=== PATIENT | female | born 1965 | race Hispanic/Latino ===

== ENCOUNTER → 2019-07-11 | Day surgery (SDC) | payer OTHER ==
[2019-07-06 12:02] LABS: BASOPHILS # (AUTO) 0.1 (0.0-0.1); BASOPHILS % 1.1 % (0.0-1.0); EOSINOPHILS # (AUTO) 0.1 (0.0-0.4); EOSINOPHILS % 1.8 % (0.0-6.0); HEMATOCRIT 41.7 % (34.2-44.1); HEMOGLOBIN 13.9 g/dL (12.0-16.0); LYMPHOCYTES # (AUTO) 1.8 (1.0-3.2); LYMPHOCYTES % 40.4 % (18.0-39.1); MEAN CORPUSCULAR HEMOGLOBIN 29.6 pg (28-32); MEAN CORPUSCULAR HGB CONC 33.3 g/dL (31-35); MEAN CORPUSCULAR VOLUME 88.9 fL (81-99); MONOCYTES # (AUTO) 0.3 (0.2-0.8); MONOCYTES % 6.6 % (4.4-11.3); NEUTROPHILS # (AUTO) 2.3 (2.1-6.9); NEUTROPHILS % 49.9 % (38.7-80.0); PLATELET COUNT 331 x10e3/uL (140-360); RED BLOOD COUNT 4.69 x10e6/uL (3.6-5.1); RED CELL DISTRIBUTION WIDTH 12.9 % (11.7-14.4)
[2019-07-06 12:17] LABS: INR 0.89; PROTHROMBIN TIME 12.6 seconds (11.9-14.5)
[2019-07-06 12:25] LABS: ALANINE AMINOTRANSFERASE 50 IU/L (0-55); ALBUMIN 4.1 g/dL (3.5-5.0); ALBUMIN/GLOBULIN RATIO 1.2 (0.8-2.0); ALKALINE PHOSPHATASE 102 IU/L (40-150); ANION GAP 11.6 mmol/L (8-16); BLOOD UREA NITROGEN 18 mg/dL (7-26); BUN/CREATININE RATIO 25 (6-25); CALCIUM 9.1 mg/dL (8.4-10.2); CARBON DIOXIDE 26 mmol/L (22-29); CHLORIDE 108 mmol/L (98-107); CREATININE, SERUM 0.73 mg/dL (0.57-1.11); EST GLOMERULAR FILTRATION RATE > 60 ML/MIN (60-); GLUCOSE 96 mg/dL (74-118); POTASSIUM 4.6 mmol/L (3.5-5.1); SODIUM 141 mmol/L (136-145)
[~2019-07-11] VITALS: Ht 157.5 cm; Wt 60.8 kg
[~2019-07-11] MED LIST: CHLORDIAZEPOX-1 EACH PO; FENTANYL CITRATE/PF 100MCG/2 ML INJ ONE; GABAPENTIN300 MG PO; HEPARIN SOD/SOD CHLORIDE 2,000 ML ONE; IOPAMIDOL 370 MG/ML 200 ML INFUS..BTL INJ ONE; IRBESARTAN-HCT1 EACH PO; LIDOCAINE HCL 2% LOCAL 20 ML VIAL ONE; MEDROL4 MG PO; MELOXICAM7.5 MG PO; MIDAZOLAM HCL 2 MG/2 ML VIAL ONE; PROPRANOLOL HCL40 MG PO; SERTRALINE HCL50 MG PO; SODIUM CHLORIDE 0.9% 1000ML 1,000 ML ONE; ZOFRAN8 MG PO; [UNRECOGNIZED DRUG - OTHER] PO
--- OUTSIDE RECORDS SUMMARY | 2019-07-11 14:37 | XMS REPORT | Summary of Care ---
Author Organization Unknown Address Unknown Phone Unavailable Encounter HQ Encntr_alias(FIN) [id number] Date(s): 07/18/14 - 07/18/14 [facility] [address] [place] [address]- Discharge Disposition: Home Physician Attending: Chalino Sifuentes MD Physician_Referring: Chalino Sifuentes MD Vital Signs No data available for this section Problem List No data available for this section Allergies, Adverse Reactions, Alerts No data available for this section Medications No data available for this section Results No data available for this section Immunizations No data available for this section Procedures No data available for this section Social History No data available for this section Assessment and Plan No data available for this section
--- OUTSIDE RECORDS SUMMARY | 2019-07-11 14:37 | XMS REPORT | Summary of Care ---
Author RICHIE [facility] [place] Unknown Address Unknown Phone Unavailable Care Team Providers Care Winding Rack Operator Name Role Phone EUFEMIA Wilkinson, MARU Unavailable Unavailab tammy BEARDEN MD, JACQUE MYRICK Unavailable Unavailkd CUEVAS MD, CAROLINE Unavailable Unavailable Keyanna Cuevas DO Unavailable Unavailable NICKI Wilkinson, JACQUE Unavailable Unavailable KATELYNN ERNANDEZ, BRIE BERNSTEIN Unavailable Unavailable JOSE ALEJANDRO ERNANDEZ, MARU NAVARRO Unavailable Unavailable Unavailable Unavailable Functional Status Name Dates Details Functional status health issues are not documented Status: Name Dates Details Cognitive status health issues are not d ocumented Status: Problems Name Dates Details Vertigo, peripheral (386.10, H81.399) Status: Active Chronic tension-type headache, not intra ctable (339.12, G44.229) Status: Active Cervical spondylosis (721.0, M47.812) Status: Active Cervical radiculopathy (723.4, M54.12) Status: Active Right shoulder pain (719.41, M25.511) Status: Active Full thickness rotator cuff tear (727.61 , M75.120) Status: Active Medications Name Dates Details Gabapentin 300 MG Oral Capsule TAKE 1 CAPSULE AT BEDTIME. Quantity: 30 M.A. * Start : 09-May-2018 Active Meloxicam 15 MG Oral Tablet TAKE 1 TABLET DAILY NEEDED. * Refills: 0 M.A. * Start : 09-May-2018 Active Sertraline HCl - 50 MG Oral Tablet TAKE 1 TABLET BY MOUTH EVERY DAY * Refills: 1 M.A. * Start : 09-May-2018 Active SUMAtriptan Succinate 50 MG Oral Tablet TAKE 1 TABLET FOR MIGRAINE RELIEF. MAY REPEAT EVERY 2 HOURS. MAX 200MG/DAY. * Quantity: 10 Refills: 2 MARU FALL M.D. * Start : 09-May-2018 Active Topiramate 50 MG Oral Tablet TAKE 1 TABLET TWICE DAILY. * Quantity: 60 Refills: 2 EUFEMIA Wilkinson, MARU * Start : 09-May-2018 Active Allergies and Adverse Reactions Name Dates Details No Known Allergies (Allergy) Status: Act franko Past Medical History Name Dates Details Chronic tension-type headache, not intra ctable (339.12, G44.229) Status: Active History of depression (V11.8, Z86.59) Status: Resolved History of fibromyalgia (V13.59, Z87.39) Status: Resolved Procedures Procedure Dates Details MRI Spine cervical wo contrast [id number] Date: 15-May-2019 MR Shoulder wo contrast 32848 Date: 15-May-2019 History of Anastomosis Of Gallbladder Co mpleted Immunization Name Dates Details Immunizations not documented Family History Name Dates Details Family history of arthritis (V17.7, Z82. 61) Comments: Other Status: Active Name Dates Details Family history of essential hypertension (V17.49, Z82.49) Status: Active Social History Name Dates Details - Status: Name Dates Details Never smoked tobacco (finding) Vital Signs Date Test Result Details [id number] Systolic blood pressure 108 mm[Hg] Status: Comments : Location: LUE; Position: Sitting Diastolic blood pressure 75 mm[Hg] Status: Comment s: Location: LUE; Position: Sitting Body height 62 in Status: Weight 133 lb Status: Body mass index (BMI) [Ratio] 24.33 kg/m2 Status: Body surface area Derived from formula 1.61 m2 S tatus: Heart Rate 79 /min Status: Body temperature 98 f Status: Results Date Description Value Details Results not documented Plan of Care Name Dates Details Planned Observations Planned Goals not documented Planned Encounters Orthopedics Referral Appointment; CAROLINE CUEVAS M.D. On: 21-Jun-2019 10:00 Instructions Name Dates Details Instructions not documented Encounters Appointment; MARU FALL M .D. Encounter Diagnosis: Problem not documented On: 09-May-2018 8:00 Appointment; MARU FALL M .D. Encounter Diagnosis: Problem not documented On: 09-Aug-2018 15:00 Appointment; CAROLINE CUEVAS M.D. Encounter Diagnosis: Problem not documented On: 15-May-2019 14:00 Appointment; CAROLINE CUEVAS M.D. Encounter Diagnosis: Problem not documented On: 15-May-2019 15:00
--- OUTSIDE RECORDS SUMMARY | 2019-07-11 14:37 | XMS REPORT | Summary of Care ---
Author Author MASON Wilkinson, RICHIE VELAZQUEZ Organization Unknown Address Unknown Phone Unavailable Care Team Providers Care Program Director Scouting Name Role Phone EUFEMIA Wilkinson, MARU Unavailable Unavailab tammy BEARDEN MD, JACQUE MYRICK Unavailable UnavailCAROLINE Triana MD Unavailable Unavailable Keyanna Cuevas DO Unavailable Unavailable NICKI Wilkinson, JACQUE Unavailable Unavailable KATELYNN ERNANDEZ, BRIE BERNSTEIN Unavailable Unavailable MARU BLOUNT MD Unavailable Unavailable Unavailable Unavailable Functional Status Name [...] MAX 200MG/DAY. * Quantity: 10 Refills: 2 EUFEMIA Wilkinson, MARU * Start : 09-May-2018 Active Topiramate 50 [...] Dates Details MRI Spine cervical wo contrast [id number] Date: 15-May-2019 MR Shoulder wo contrast 58053 Date: 15-May-2019 History of Anastomosis Of Gallbladder [...] (finding) Vital Signs Date Test Result Details [id number] Systolic blood pressure 108 mm[Hg] Status: Comments [...]
--- OUTSIDE RECORDS SUMMARY | 2019-07-11 14:37 | XMS REPORT | Summary of Care ---
Author Author Thanh Whitt, RICHIE ENGLISH Organization Unknown Address Unknown Phone Unavailable Care Team Providers Care Crew Dispatcher Name Role Phone EUFEMIA Wilkinson, MARU Unavailable Unavailab tammy BEARDEN MD, JACQUE MYRICK Unavailable Unavaila JACQUE Prasad M.D. Unavailable Unavailable KATELYNN ERNANDEZ, BRIE BERNSTEIN Unavailable Unavailable JOSE ALEJANDRO ERNANDEZ, MARU NAVARRO Unavailable Unavailable Unavailable Unavailable Functional Status Name Dates Details Functional status health issues are not documented Status: Name Dates Details Cognitive status health issues are not d ocumented Status: Problems Name Dates Details Chronic tension-type headache, not intra ctable (339.12, G44.229) Status: Active Vertigo, peripheral (386.10, H81.399) Status: Active Medications Name Dates Details Gabapentin 300 MG Oral Capsule TAKE 1 CAPSULE AT BEDTIME. Quantity: 30 * Start : 09-May-2018 Active Meloxicam 15 MG Oral Tablet TAKE 1 TABLET DAILY NEEDED. * Refills: 0 * Start : 09-May-2018 Active Sertraline HCl - 50 MG Oral Tablet TAKE 1 TABLET BY MOUTH EVERY DAY * Refills: 1 * Start : 09-May-2018 Active Ciprofloxacin HCl - 250 MG Oral Tablet TAKE 1 TABLET EVERY 12 HOURS DAILY. * Refills: 0 * Start : 09-May-2018 Active SUMAtriptan Succinate 50 MG Oral Tablet TAKE 1 TABLET FOR MIGRAINE RELIEF. MAY REPEAT EVERY 2 HOURS. MAX 200MG/DAY. * Quantity: 10 Refills: 2 MARU FALL M.D. * Start : 09-May-2018 Active Topiramate 50 MG Oral Tablet TAKE 1 TABLET TWICE DAILY. * Quantity: 60 Refills: 2 MARU FALL M.D. * Start : 09-May-2018 Active Allergies and Adverse Reactions Name Dates Details No Known Allergies (Allergy) Status: Act franko Past Medical History Name Dates Details Chronic tension-type headache, not intra ctable (339.12, G44.229) Status: Active History of depression (V11.8, Z86.59) Status: Resolved History of fibromyalgia (V13.59, Z87.39) Status: Resolved Procedures Procedure Dates Details MRI Brain wo contrast [id number] Date: 09-May-2018 History of Anastomosis Of Gallbladder Co mpleted Immunization Name Dates Details Immunizations not documented Family History Name Dates Details Family history of arthritis (V17.7, Z82. 61) Comments: Other Status: Active Name Dates Details Family history of essential hypertension (V17.49, Z82.49) Status: Active Social History Name Dates Details - Status: Name Dates Details Never smoker Vital Signs Date Test Result Details [id number] BP Systolic 131 mm[Hg] Status: Comments: Lo cation: LUE; Position: Sitting BP Diastolic 87 mm[Hg] Status: Comments: Lo cation: LUE; Position: Sitting Height 62 in Status: Weight 138 lb Status: Body Mass Index Calculated 25.24 kg/m2 Status: Body Surface Area Calculated 1.63 m2 Status: Heart Rate 87 /min Status: Comments: Lo cation: L Brachial Artery; Results Date Description Value Details Results not documented Plan of Care Name Dates Details Planned Observations Planned Goals not documented Planned Encounters Appointment; MARU FALL M .D. On: 09-Aug-2018 15:00 Interventions Provided Medication Changes* SUMAtriptan Succinate 50 MG Oral Tablet - Renew * Topiramate 50 MG Oral Tablet - Start Labs/Procedures/Imaging* MRI Brain wo contrast [id number]; To Be Done: 09 May 2018 Plan* - continue meclizine, f/u with ENT * - vestibular rehab * - RTC in 3 mons Instructions Name Dates Details Instructions not documented Encounters Appointment; MARU FALL M .D. Encounter Diagnosis: Problem not documented On: 09-May-2018 8:00
--- OUTSIDE RECORDS SUMMARY | 2019-07-11 14:37 | XMS REPORT | Continuity of Care Document ---
Author Author RICHIE [facility] Address Unknown Phone Unavailable Care Team Providers Care Sausage Grinder Name Role Phone [facility] Information [employer] Unavailable Un available Problems Problem Status Onset Date Classification Date Reported Comments Source 386.10 VERTIGO Active 07/16/2014 [facility] Medications No Data Provided for This Section Allergies, Adverse Reactions, Alerts No Known Medication Allergies Immunizations No Data Provided for This Section Results No Data Provided for This Section Pathology Reports No Data Provided for This Section Diagnostic Reports Report Value Date Source Brain wo contrast CT CRANIAL CT (without contrast) 07/18/2014 HISTORY: Chronic headaches. TECHNIQUE: Helical CT images were obtained from the foramen magnum to the vertex without the use of intravenous contrast. There are no prior studies available for comparison. It is noted the patient also had a high-resolution CT scan of the temporal bones (internal auditory canals). Please refer to separate report. FINDINGS: There is normal appearance of the ventricular system and extraventricular CSF spaces. There is no evidence of mass, midline shift, hemorrhage, extra-axial fluid collection, acute infarction, or other focal abnormal attenuation within the brain parenchyma. The calvarium is intact. The visualized sinuses and mastoids are clear. CONCLUSION: 1. Negative noncontrast cranial CT. 2. Please refer to the accompanying CT r eport of the temporal bones (internal auditory canals). Coding: Brain wo contrast CT CPT Code: 17530 SL: 12 Artur Tiwari M.D. 07/18/2014 [facility] Internal Auditory Canal wo contrast CT CT INTERNAL AUDITORY CANAL WITHOUT CONTRAST INDICATION: Peripheral vertigo COMPARISON: None FINDINGS: RIGHT TEMPORAL BONE: External auditory canal: The EAC is patent. The tympanic membrane is unremarkable. Middle ear cavity: The middle ear cavity, including the hypotympanum and epitympanum, are clear. Mastoid air cells: Clear. Ossicles: Well visualized and intact. Inner ear: The cochlea, vestibule, and semicircular canals are unremarkable. Vestibular aqueduct: Normal in caliber. Facial nerve canal: The course of the facial nerve is unremarkable. Vascular structures: The locations of the petrous ICA and jugular bulb are within normal limits. LEFT TEMPORAL BONE: External auditory canal: The EAC is patent. The tympanic membrane is unremarkable. Middle ear cavity: The middle ear cavity, including the hypotympanum and epitympanum, are clear. Mastoid air cells: Clear. Ossicles: Well visualized and intact. Inner ear: The cochlea, vestibule, and semicircular canals are unremarkable. Vestibular aqueduct: Normal in caliber. Facial nerve canal: The course of the facial nerve is unremarkable. Vascular structures: The locations of the petrous ICA and jugular bulb are within normal limits. IMPRESSION: Unremarkable CT appearance of the temporal bones. SL: 16 07/18/2014 [facility] Consultation Notes No Data Provided for This Section Discharge Summaries No Data Provided for This Section History and Physicals No Data Provided for This Section Vital Signs No Data Provided for This Section Encounters Location Location Details Encounter Type Encounter Number Reason For Visit Attending Provider ADM Date DC Date Status Source [facility] [id number] Chalino Bear 07/18/2014 07/19/2014 [facility] Procedures No Data Provided for This Section Assessment and Plan No Data Provided for This Section Plan of Care No Data Provided for This Section Social History Social History Date Source No data available for this section 07/19/2014 [facility] Family History No Data Provided for This Section Advance Directives No Data Provided for This Section Functional Status No Data Provided for This Section
--- OUTSIDE RECORDS SUMMARY | 2019-07-11 14:37 | XMS REPORT ---
Author Author [facility] Organization [facility] Address Unknown Phone Unavailable Care Team Providers Care Medical Lab Technologist Name Role Phone NIKKI ROBERTS M.D. Unavailable Unavailable CAROLINE CUEVAS M.D. Unavailable Unavailable MARU FALL M.D. Unavailable Unavailab le Problems Condition Name Condition Details Condition Category Status Onset Date Resolution Date Last Treatment Date Treating Clinician Comments History of depression History of depression Problem Resolved History of fibromyalgia History of fibromyalgia Problem Resolved Chronic tension-type headache, not intractable Chronic tension-type headache, not intractable Problem Active Vertigo, peripheral Vertigo, peripheral Problem Active Cervical spondylosis Cervical spondylosis Problem Active Cervical radiculopathy Cervical radiculopathy Problem Active Right shoulder pain Right shoulder pain Problem Active Full thickness rotator cuff tear Full thickness rotator cuff tea r Problem Active SLAP shoulder tear SLAP shoulder tear Problem Active Adhesive capsulitis of right shoulder Adhesive capsulitis of right shoulder Problem Active Shoulder impingement, right Shoulder impingement, right Problem Active Traumatic incomplete tear of right rotator cuff, initi al encounter Traumatic incomplete tear of right rotator cuff, initial encounter Problem Active Allergies, Adverse Reactions, Alerts This patient has no known allergies or adverse reactions. Medications Ordered Medication Name Filled Medication Name Start Date Stop Da te Current Medication? Ordering Clinician Indication Dosage Frequency Signature (SIG) Comments Components Meloxicam 7.5 MG Oral Tablet Meloxicam 7.5 MG Oral Tablet 2019-06-02 0 00:00:00 Yes NIKKI ROBERTS M.D. QD TAKE 1 TABLET DAILY W ITH FOOD. methylPREDNISolone 4 MG Oral Tablet methylPREDNISolone 4 MG Oral Tablet 2019-06-29 00:00:00 Yes NIKKI ROBERTS M.D. O NE TABLE TWICE DAILY Gabapentin 300 MG Oral Capsule Gabapentin 300 MG Oral Capsul e 2018-05-09 00:00:00 Yes CAROLINE CUEVAS M.D. Q0.3333D TAKE 3 CAPSULE S 3 TIMES DAILY. Meloxicam 15 MG Oral Tablet Meloxicam 15 MG Oral Tablet 2018-05-09 00:00:00 Yes CAROLINE CUEVAS M.D. TAKE 1 TABLET DAILY N EEDED. Sertraline HCl - 50 MG Oral Tablet Sertraline HCl - 50 MG Or al Tablet 2018-05-09 00:00:00 Yes TAKE 1 TABLET BY MOUTH EVERY DAY SUMAtriptan Succinate 50 MG Oral Tablet SUMAtriptan Succinat e 50 MG Oral Tablet 2018-05-09 00:00:00 Yes MARU FALL M.D. TAKE 1 TABLET FOR MIGRAINE RELIEF. MAY REPEAT EVERY 2 HOURS. MAX 200MG/DAY. Topiramate 50 MG Oral Tablet Topiramate 50 MG Oral Tablet 2018-04-29 00:00:00 Yes MARU FALL M.D. Q0.5D TAKE 1 TABL ET TWICE DAILY. Vital Signs Vital Name Observation Time Observation Value Comments Systolic blood pressure 2019-06-21 10:23:00 123 mm[Hg] Loca tion: LUE; Position: Sitting Diastolic blood pressure 2019-06-21 10:23:00 79 mm[Hg] Loc ation: LUE; Position: Sitting Body height 2019-06-21 10:23:00 62 [in_us] Weight 2019-06-21 10:23:00 134 [lb_av] Heart Rate 2019-06-21 10:23:00 60 /min Systolic blood pressure 2019-05-15 14:30:00 108 mm[Hg] Loca tion: LUE; Position: Sitting Diastolic blood pressure 2019-05-15 14:30:00 75 mm[Hg] Loc ation: LUE; Position: Sitting Body height 2019-05-15 14:30:00 62 [in_us] Weight 2019-05-15 14:30:00 133 [lb_av] Heart Rate 2019-05-15 14:30:00 79 /min Body temperature 2019-05-15 14:30:00 98 [degF] BP Systolic 2018-05-09 09:02:00 131 mm[Hg] Location: [facility]; Position: Sitting BP Diastolic 2018-05-09 09:02:00 87 mm[Hg] Location: [place]; Position: Sitting Height 2018-05-09 09:02:00 62 [in_us] Weight 2018-05-09 09:02:00 138 [lb_av] Heart Rate 2018-05-09 09:02:00 87 /min Location: L Brachial Artery; Procedures and Interventions Procedure Date / Time Performed Performing Clinici an [U] XRAY SHOULDER MIN 2 VWS RIGHT [id number] 2019-06-28 00:00:00 MRI Spine cervical wo contrast [id number] 2019-05-15 00:00:00 MR Shoulder wo contrast [id number] 2019-05-15 00:00:00 MRI Brain wo contrast [id number] 2018-05-09 00:00:00 History of Anastomosis Of Gallbladder Encounters Start Date/Time End Date/Time Encounter Type Admission Type Attendi [facility] Care Department Encounter ID 2019-06-29 12:30:00 2019-06-29 12:30:00 Appointment; NIKKI ROBERTS M.D. CRUMBIE, DAVID, M.D. [facility] Orthopedics [facility] [id number] 2019-06-21 10:00:00 2019-06-21 10:00:00 Appointment; CAROLINE CUEVAS M .D. JAVED, SABA, M.D. [facility] [id number] 2019-05-15 15:00:00 2019-05-15 15:00:00 Appointment; CAROLINE CUEVAS M .D. JAVED, SABA, M.D. [facility] [id number] 2019-05-15 14:00:00 2019-05-15 14:00:00 Appointment; CAROLINE CUEVAS M .D. JAVED, SABA, M.D. [facility] [id number] 2018-08-09 15:00:00 2018-08-09 15:00:00 Appointment; MARU COLE M.D. ROSERO-ENRIQUEZ, ADRIANA, M.D. [facility] [id number] 2018-05-09 08:00:00 2018-05-09 08:00:00 Appointment; MARU COLE M.D. ROSERO-ENRIQUEZ, ADRIANA, M.D. [facility] Neurology [id number] Results Test Description Test Time Test Comments Text Results Atomic Results Result Comments [U] XRAY SHOULDER MIN 2 VWS RIGHT [id number] 2019-06-29 12:49:00 Images acquired, not reported on this accession number.
--- OUTSIDE RECORDS SUMMARY | 2019-07-11 14:37 | XMS REPORT | Summary of Care ---
Author RICHIE Montelongo M.A. Organization Unknown Address Unknown Phone Unavailable Care Team Providers Care Holistic Health Practitioner Name Role Phone EUFEMIA Wilkinson, MARU Unavailable Unavailab Nirmala Zayas M.A. Unavailable Unavailable NICKI BEARDEN MD, JACQUE MYRICK Unavailable Unavaila rosa CUEVAS MD, CAROLINE Unavailable Unavailable Basilio HAIR, Keyanna Unavailable Unavailable NICKI Wilkinson, JACQUE Unavailable Unavailable [...] Refills: 1 * Start : 09-May-2018 Active SUMAtriptan Succinate [...] Dates Details MRI Spine cervical wo contrast [id number] Date: 15-May-2019 MR Shoulder wo contrast [id number] Date: 15-May-2019 History of Anastomosis Of Gallbladder [...] (finding) Vital Signs Date Test Result Details [id number] Systolic blood pressure 108 mm[Hg] Status: Comments [...]
--- OUTSIDE RECORDS SUMMARY | 2019-07-11 14:37 | XMS REPORT | Summary of Care ---
Author Author MASON Wilkinson, RICHIE VELAZQUEZ Organization Unknown Address Unknown Phone Unavailable Care Team Providers Care Meteorological Technician Name Role Phone MASON Wilkinson, CAROLINE Unavailable Unavailable EUFEMIA Wilkinson, MARU Unavailable Unavailab tammy BEARDEN MD, JACQUE MYRICK Unavailable Unavaila rosa CUEVAS MD, CAROLINE Unavailable Unavailable Keyanna Cuevas [...] Right shoulder pain (719.41, M25.511) Status: Active Medications Name Dates Details Gabapentin [...] Dates Details MRI Spine cervical wo contrast [id number] Date: 15-May-2019 MR Shoulder wo contrast [id number] Date: 15-May-2019 History of Anastomosis Of Gallbladder [...] (finding) Vital Signs Date Test Result Details [id number] Systolic blood pressure 108 mm[Hg] Status: Comments [...] Planned Goals not documented Planned Encounters Appointment; CAROLINE CUEVAS M.D. On: 21-Jun-2019 10:00 Interventions Provided Plan* Medication Changes: documented in orders. Please continue to take all your medicines as prescribed. * Intervention Therapy: Plan for future Right Shoulder Injection and Right Cervical MBB once imaging obtained * Physical Therapy: Encouraged patient to continue HEP. * Psychologic Therapy: Deferred * Radiology Orders: Cervical MRI and Shoulder Series * Patient Education: Performed. * Please return for your follow up visit in: * Return to the clinic:after imaging study completed or as needed. Discussion/Summary* Impression: Patient is a 54yo female that presents with 3 year history of b/l UE pain and b/l knee pain. She states that the pain in the UEs is worse on the right side, exhibits all characteristics at different times, is contant in nature, radiates down both arms to the fingertips, currently listed as 6/10, worsens with daily activities, slightly alleviated by Gabapentin and past steroid injections completed by GP. She received 4 steroid injections in the past year, with the latest one month ago that provided little relief. She currently takes Gabapentin BID 600mg. She has not completed formal PT. The b/l knee pain is constant in nature, limits her walking ability, has received no injections, does not radiate, and feels more inflamed than her UEs. * Physical Exam pertinent positive: Right +Linn's, +Neer's, +Oil Can, B/L +Cervical Paraspinal Tenderness, B/L +Cervical Facet Loading * Imaging: * MRI Cervical Spine (05/24/2019) * - Degenerative changes including mild moderate foraminal narrowing at right C3-4 and left C6-7. No high grade or foraminal stenosis * MRI right shoulder (05/24/2019) * -Near complete full thickness rupture of supraspinatus tendon measuring at least 1.4 cm in AP dimension x 1.2 in width * -Full thickness rotator cuff tear extends posteriorly to involve at least anterior aspect of infraspinatous tendon. * -SLAP type labral tear * DDx: Shoulder Injury Pathology, Cervical Facet Arthropathy, Cervical Radiculopathy * Plan: * -Medications: increase Gabapentin to 600mg TID, continue Mobic 15mg QD * -PT: Home Exercises PRN * -Imaging: MRI Cervical Spine and Right Shoulder MRI to be completed (updated as above) * -Procedures: possible Right Cervical MBB + Right Shoulder Steroid Injections * -Follow-up: One month, after imaging to review imaging * Time spent in counseling and/or coordination of care for this patient. Counseled: patient. * Counseling Topic(s): Decrease caloric intake, no meals within 2 hours of bedtime, sleep hygiene, risk of respiratory depression and sedation were discussed, in detail. The patient understands that using benzodiazepine or alcohol greatly increases risk of respiratory depression, sedation, and possible . Instructions Name Dates Details Instructions not documented [...]
--- OUTSIDE RECORDS SUMMARY | 2019-07-11 14:37 | XMS REPORT | Summary of Care ---
Author Author RICHIE Washington Organization Unknown Address Unknown Phone Unavailable Care Team Providers Care Housing Officer Name Role Phone Claudia Washington Unavailable Unavailable EUFEMIA Wilkinson, MARU Unavailable Unavailab tammy BEARDEN MD, JACQUE MYRICK Unavailable Unavailkd CUEVAS MD, CAROLINE Unavailable Unavailable Basilio HAIR, [...] Active Cervical spondylosis (721.0, M47.812) Status: Active Medications Name Dates Details Gabapentin [...] TWICE DAILY. * Quantity: 60 Refills: 2 SABINA FALL M.D.ANA * Start : 09-May-2018 Active Allergies and Adverse Reactions Name Dates Details No Known Allergies (Allergy) Status: Act franko Past Medical History Name Dates Details Chronic tension-type headache, not intra ctable (339.12, G44.229) Status: Active History of depression (V11.8, Z86.59) Status: Resolved History of fibromyalgia (V13.59, Z87.39) Status: Resolved Procedures Procedure Dates Details MRI Spine cervical wo contrast 87704 Date: 15-May-2019 MR Shoulder wo contrast 92121 Date: 15-May-2019 History of Anastomosis Of Gallbladder [...] (finding) Vital Signs Date Test Result Details [id number] Systolic blood pressure 108 mm[Hg] Status: Comments [...] CUEVAS M.D. On: 21-Jun-2019 10:00 Interventions Provided Labs/Procedures/Imaging* MR Shoulder wo contrast 47590; To Be Done: 15 May 2019 * MRI Spine cervical wo contrast 12998; To Be Done: 15 May 2019 Instructions Name Dates Details Instructions not documented Encounters Appointment; MARU FALL M .D. Encounter Diagnosis: Problem not documented On: 09-May-2018 8:00 Appointment; MARU FALL M .D. Encounter Diagnosis: Problem not documented On: 09-Aug-2018 15:00 Appointment; CAROLINE CUEVAS M.D. Encounter Diagnosis: Problem not documented On: 15-May-2019 14:00
--- OUTSIDE RECORDS SUMMARY | 2019-07-11 14:37 | XMS REPORT | Summary of Care ---
Author RICHIE Rockwell [facility] Unknown Address Unknown Phone Unavailable Care Team Providers Care Stem Frazer Name Role Phone EUFEMIA Wilkinson, MARU Unavailable Unavailab Claudette Nunez Unavailable Unavailable NICKI BEARDEN MD, JACQUE MYRICK [...] Dates Details MRI Spine cervical wo contrast 28292 Date: 15-May-2019 MR Shoulder wo contrast 32660 Date: 15-May-2019 History of Anastomosis Of Gallbladder [...] (finding) Vital Signs Date Test Result Details [id number] Systolic blood pressure 108 mm[Hg] Status: Comments [...]
--- OUTSIDE RECORDS SUMMARY | 2019-07-11 14:37 | XMS REPORT | Summary of Care ---
Author Author RICHIE Vinson M.A. Unknown Address Unknown Phone Unavailable Care Team Providers Care Leather Softener Name Role Phone MASON Wilkinson, CAROLINE Unavailable Unavailable EUFEMIA Wilkinson, MARU Unavailable Unavailab tammy BEARDEN MD, JACQUE MYRICK Unavailable Unavaila rosa CUEVAS MD, CAROLINE Unavailable Unavailable NICKI Wilkinson, JACQUE Unavailable Unavailable [...] not intra ctable (339.12, G44.229) Status: Active Medications Name Dates Details Gabapentin [...] Z87.39) Status: Resolved Procedures Procedure Dates Details History of Anastomosis Of Gallbladder Co mpleted Immunization Name Dates Details Immunizations not documented Family History Name Dates Details Family history of arthritis (V17.7, Z82. 61) Comments: Other Status: Active Name Dates Details Family history of essential hypertension (V17.49, Z82.49) Status: Active Social History Name Dates Details - Status: Name Dates Details Never smoked tobacco (finding) Vital Signs Date Test Result Details 73-[id number] Systolic blood pressure 108 mm[Hg] Status: Comments [...] Details Planned Observations Planned Goals not documented Instructions Name Dates Details Instructions not documented [...]
--- OUTSIDE RECORDS SUMMARY | 2019-07-11 14:37 | XMS REPORT | Summary of Care ---
Author Author RICHIE Hill Organization Unknown Address Unknown Phone Unavailable Care Team Providers Care Automobile Spring Repairer Name Role Phone Hill, Kate Unavailable Unavailable EUFEMIA Wilkinson, MARU Unavailable Unavailab [...] Dates Details MRI Spine cervical wo contrast 30768 Date: 15-May-2019 MR Shoulder wo contrast 71673 Date: 15-May-2019 History of Anastomosis Of Gallbladder [...] (finding) Vital Signs Date Test Result Details 76-[id number]:30 Systolic blood pressure 108 mm[Hg] Status: Comments [...] Planned Goals not documented Planned Encounters Appointment; CAROILNE CUEVAS M.D. On: 21-Jun-2019 10:00 Instructions Name [...]
--- OUTSIDE RECORDS SUMMARY | 2019-07-11 14:37 | XMS REPORT | Summary of Care ---
Author Author MASON Wilkinson, RICHIE VELAZQUEZ Organization Unknown Address Unknown Phone Unavailable Care Team Providers Care Venetian Blind Maker Name Role Phone MASON Wilkinson, CAROLINE Unavailable [...] Dates Details MRI Spine cervical wo contrast 07048 Date: 15-May-2019 MR Shoulder wo contrast 06355 Date: 15-May-2019 History of Anastomosis Of Gallbladder [...] (finding) Vital Signs Date Test Result Details [id number] Systolic blood pressure 108 mm[Hg] Status: Comments [...] Tenderness, B/L +Cervical Facet Loading * Imaging: MRI Cervical Spine and Shoulder Series to be completed * DDx: Shoulder Injury Pathology, Cervical Facet Arthropathy, Cervical Radiculopathy * Plan: * -Medications: increase Gabapentin to 600mg TID, continue Mobic 15mg QD * -PT: Home Exercises PRN * -Imaging: MRI Cervical Spine and Right Shoulder MRI to be completed * -Procedures: possible Right Cervical MBB + [...]
--- OUTSIDE RECORDS SUMMARY | 2019-07-11 14:38 | XMS REPORT | Summary of Care ---
Author RICHIE Myers M.D. Organization Unknown Address Unknown Phone Unavailable Care Team Providers Care Radiator Specialist Name Role Phone MASON Wilkinson, CAROLINE Unavailable [...] intra ctable (339.12, G44.229) Status: Active Cervical radiculopathy (723.4, M54.12) Status: Active Right shoulder pain (719.41, M25.511) Status: Active Cervical spondylosis (721.0, M47.812) Status: Active Full thickness rotator cuff tear (727.61 , M75.120) Status: Active SLAP shoulder tear (840.7, S43.439A) Status: Active Medications Name Dates Details Gabapentin 300 MG Oral Capsule TAKE 3 CAPSULES 3 TIMES DAILY. Quantity: 270 MASON M.D., CAROLINE * Start : 09-May-2018 Active Meloxicam 15 MG Oral Tablet TAKE 1 TABLET DAILY NEEDED. * Quantity: 30 Refills: 0 MASON Isauro.D., CAROLINE * Start : 09-May-2018 Active Sertraline HCl [...] Dates Details MRI Spine cervical wo contrast 92305 Date: 15-May-2019 MR Shoulder wo contrast 47634 Date: 15-May-2019 History of Anastomosis Of Gallbladder [...] (finding) Vital Signs Date Test Result Details [id number] Systolic blood pressure 123 mm[Hg] Status: Comments : Location: LUE; Position: Sitting Diastolic blood pressure 79 mm[Hg] Status: Comment s: Location: LUE; Position: Sitting Body height 62 in Status: Weight 134 lb Status: Body mass index (BMI) [Ratio] 24.51 kg/m2 Status: Body surface area Derived from formula 1.61 m2 S tatus: Heart Rate 60 /min Status: Results Date Description Value Details Results not documented Plan of Care Name Dates Details Planned Observations Planned Goals not documented Planned Encounters Orthopedics Referral Appointment; CAROLINE CUEVAS M.D. On: 23-Aug-2019 10:30 Interventions Provided Medication Changes* Gabapentin 300 MG Oral Capsule - Renew with Changes * Meloxicam 15 MG Oral Tablet - Renew Plan* Medication Changes: documented in orders. Please continue to take all your medicines as prescribed. * Physical Therapy: Encouraged patient to continue HEP. * Psychologic Therapy: Deferred * Patient Education: Performed. * Please return for your follow up visit in: * 2 month Discussion/Summary* Impression: Patient is a 54yo female following up today for chronic neck and right shoulder pain. Patient was seen as a new consult 1 month ago, at which time we ordered cervical and right shoulder MRI (results as below). Patient continues to endorse severe neck and worse right shoulder pain. Currently on Gabapentin 600mg PO TID, and meloxicam 15mg qday. Recently, endorsing left chest "pains" and left arm numbness, follows a rocket test fire worker, and has a stress test in 1 weeks. These sx are not new, and she currently is NOT having any chest pain. Says her previous EKG was "normal". * Physical Exam pertinent positive: Right +Linn's, [...] * Plan: * -Medications: increase Gabapentin to 900mg TID, continue Mobic 15mg QD * -PT: Home Exercises PRN * -Imaging: As above * -Procedures: possible Right Cervical MBB + Right Shoulder Steroid Injections; will discuss after patient has undergone cardiac stress test for chest pains (06/2019) and has seen orthopedic surgery * - Referral: Orthopedic surgery referral for SLAP/labral tear right shoulder * -Follow-up: 2 months * Time spent in counseling and/or coordination [...] Diagnosis: Problem not documented On: 15-May-2019 15:00 Appointment; CAROLINE CUEVAS M.D. Encounter Diagnosis: Problem not documented On: 21-Jun-2019 10:00
--- OUTSIDE RECORDS SUMMARY | 2019-07-11 14:38 | XMS REPORT | Summary of Care ---
Author RICHIE Callahan M.A. Unknown Address [facility] Phone Unavailable Care Team Providers Care Dough Molder Name Role Phone ALEJANDRA Wilkinson, NIKKI Unavailable Unavailable MASON Wilkinson, CAROLINE Unavailable Unavailable EUFEMIA Wilkinson, MARU Unavailable Unavailab Maryjane ERNANDEZ, JACQUE MYRICK Unavailable Unavailkd CUEVAS MD, CAROLINE [...] NEEDED. * Quantity: 30 Refills: 0 MASON M.D., CAROLINE * Start : 09-May-2018 Active Sertraline HCl - 50 MG Oral Tablet TAKE 1 TABLET BY MOUTH EVERY DAY * Refills: 1 * Start : 09-May-2018 Active SUMAtriptan Succinate 50 MG Oral Tablet TAKE 1 TABLET FOR MIGRAINE RELIEF. MAY REPEAT EVERY 2 HOURS. MAX 200MG/DAY. * Quantity: 10 Refills: 2 EUFEMIA WilkinsonMARU * Start : 09-May-2018 Active Topiramate 50 MG Oral Tablet TAKE 1 TABLET TWICE DAILY. * Quantity: 60 Refills: 2 EUFEMIA WilkinsonMARU * Start : 09-May-2018 Active Allergies and Adverse Reactions Name Dates Details No Known Allergies (Allergy) Status: Act franko Past Medical History Name Dates Details Chronic tension-type headache, not intra ctable (339.12, G44.229) Status: Active History of depression (V11.8, Z86.59) Status: Resolved History of fibromyalgia (V13.59, Z87.39) Status: Resolved Procedures Procedure Dates Details MRI Spine cervical wo contrast 86232 Date: 15-May-2019 MR Shoulder wo contrast 56605 Date: 15-May-2019 [U] XRAY SHOULDER MIN 2 VWS RIGHT 79714 Date: 28-Jun-2019 History of Anastomosis Of Gallbladder Co mpleted Immunization Name Dates Details Immunizations not documented Family History Name Dates Details Family history of arthritis (V17.7, Z82. 61) Comments: Other Status: Active Name Dates Details Family history of essential hypertension (V17.49, Z82.49) Status: Active Social History Name Dates Details - Status: Name Dates Details Never smoked tobacco (finding) Vital Signs Date Test Result Details [id number] Systolic blood pressure 123 mm[Hg] Status: Comments : Location: E; Position: Sitting Diastolic blood pressure 79 mm[Hg] Status: Comment s: Location: E; Position: Sitting Body height 62 in Status: Weight 134 lb Status: Body mass index (BMI) [Ratio] 24.51 kg/m2 Status: Body surface area Derived from formula 1.61 m2 S tatus: Heart Rate 60 /min Status: Results Date Description Value Details Results not documented Plan of Care Name Dates Details Planned Observations Planned Goals not documented Planned Encounters Appointment; NIKKI ROBERTS M.D. On: 29-Jun-2019 12:30 Appointment; CAROLINE CUEVAS M.D. On: 23-Aug-2019 10:30 Interventions Provided Labs/Procedures/Imaging* [U] XRAY SHOULDER MIN 2 VWS RIGHT 91647; To Be Done: 29 Jun 2019 Instructions Name Dates Details Instructions not [...] Diagnosis: Problem not documented On: 21-Jun-2019 10:00 Appointment; NIKKI ROBERTS M.D. Encounter Diagnosis: Problem not documented On: 29-Jun-2019 12:30
--- OUTSIDE RECORDS SUMMARY | 2019-07-11 14:38 | XMS REPORT | Summary of Care ---
Author RICHIE Rockwell [facility] Unknown Address Unknown Phone Unavailable Care Team Providers Care Surgical Training Specialist Name Role Phone MASON Wilkinson, CAROLINE Unavailable Unavailable EUFEMIA Wilkinson, MARU Unavailable Unavailab Claudette Nunez Unavailable Unavailable NICKI BEARDEN MD, JACQUE MYRICK Unavailable Unavaila rosa CUEVAS MD, CAROLINE Unavailable Unavailable Keyanna Cuevas DO Unavailable Unavailable NICKI Wilkinson, JACQUE Unavailable Unavailable KATELYNN ERNANDEZ, BRIE BERNSTEIN Unavailable Unavailable JOSE ALEJANDRO ERNANDEZ, AMRU NAVARRO Unavailable Unavailable Unavailable Unavailable Functional Status [...] MAX 200MG/DAY. * Quantity: 10 Refills: 2 JOSE ALEJANDRO-TUCKER M.D., MARU * Start : 09-May-2018 Active Topiramate [...] Dates Details MRI Spine cervical wo contrast 94280 Date: 15-May-2019 MR Shoulder wo contrast 62062 Date: 15-May-2019 History of Anastomosis Of Gallbladder [...] (finding) Vital Signs Date Test Result Details [id number] Systolic blood pressure 123 mm[Hg] Status: Comments [...] not documented Planned Encounters Orthopedics Referral Appointment; NIKKI ROBERTS M.D. On: 29-Jun-2019 12:30 Appointment; CAROLINE CUEVAS M.D. On: 23-Aug-2019 10:30 Instructions Name Dates Details Instructions not documented [...]
--- OUTSIDE RECORDS SUMMARY | 2019-07-11 14:38 | XMS REPORT | Summary of Care ---
Author RICHIE Rockwell [facility] Unknown Address Unknown Phone Unavailable Care Team Providers Care Machine Clothing Worker Name Role Phone MASON Wilkinson, CAROLINE Unavailable [...] Dates Details MRI Spine cervical wo contrast 75903 Date: 15-May-2019 MR Shoulder wo contrast 44117 Date: 15-May-2019 History of Anastomosis Of Gallbladder [...] (finding) Vital Signs Date Test Result Details [id number] Systolic blood pressure 123 mm[Hg] Status: Comments [...]
--- OUTSIDE RECORDS SUMMARY | 2019-07-11 14:38 | XMS REPORT | Summary of Care ---
Author RICHIE Myers M.D. Organization Unknown Address Unknown Phone Unavailable Care Team Providers Care Title Coordinator Name Role Phone MASON Wilkinson, CAROLINE Unavailable [...] CAPSULES 3 TIMES DAILY. Quantity: 270 MASON MPriscillaD., CAROLINE * Start : 09-May-2018 Active Meloxicam [...] Dates Details MRI Spine cervical wo contrast 43368 Date: 15-May-2019 MR Shoulder wo contrast 55646 Date: 15-May-2019 History of Anastomosis Of Gallbladder [...] (finding) Vital Signs Date Test Result Details 20-[id number] Systolic blood pressure 123 mm[Hg] Status: Comments [...] Details Planned Observations Planned Goals not documented Interventions Provided Medication Changes* Gabapentin 300 MG [...] "pains" and left arm numbness, follows a forgeman helper, and has a stress test in 1 [...]
--- OUTSIDE RECORDS SUMMARY | 2019-07-11 14:38 | XMS REPORT | Summary of Care ---
Author Author RICHIE Hill Organization Unknown Address Unknown Phone Unavailable Care Team Providers Care Bread Pan Greaser Name Role Phone Kate Hill Unavailable Unavailable MASON Wilkinson, CAROLINE Unavailable Unavailable [...] Dates Details MRI Spine cervical wo contrast 28279 Date: 15-May-2019 MR Shoulder wo contrast 32198 Date: 15-May-2019 History of Anastomosis Of Gallbladder [...] (finding) Vital Signs Date Test Result Details [id number] Systolic blood pressure 123 mm[Hg] Status: Comments [...]
--- OUTSIDE RECORDS SUMMARY | 2019-07-11 14:38 | XMS REPORT | Summary of Care ---
Author RICHIE Callahan M.A. Unknown Address [facility] Phone Unavailable Care Team Providers Care Director Hedis Name Role Phone ALEJANDRA Wilkinson, NIKKI Unavailable [...] d ocumented Status: Problems Name Dates Details SLAP shoulder tear (840.7, S43.439A) Status: Active Chronic tension-type headache, not intra ctable (339.12, G44.229) Status: Active Vertigo, peripheral (386.10, H81.399) Status: Active Cervical radiculopathy (723.4, M54.12) Status: Active Right shoulder pain (719.41, M25.511) Status: Active Full thickness rotator cuff tear (727.61 , M75.120) Status: Active Cervical spondylosis (721.0, M47.812) Status: Active Adhesive capsulitis of right shoulder (7 26.0, M75.01) Status: Active Medications Name Dates Details Gabapentin [...] Wilkinson, MARU * Start : 09-May-2018 Active Meloxicam 7.5 MG Oral Tablet TAKE 1 TABLET DAILY WITH FOOD. * Quantity: 30 Refills: 3 NIKKI ROBERTS M.D. * Start : 29-Jun-2019 Active methylPREDNISolone 4 MG Oral Tablet ONE TABLE TWICE DAILY * Quantity: 28 Refills: 0 NIKKI ROBERTS M.D. * Start : 29-Jun-2019 Active Allergies and Adverse Reactions Name Dates Details No Known Allergies (Allergy) Status: Act franko Past Medical History Name Dates Details Chronic tension-type headache, not intra ctable (339.12, G44.229) Status: Active History of depression (V11.8, Z86.59) Status: Resolved History of fibromyalgia (V13.59, Z87.39) Status: Resolved Procedures Procedure Dates Details MRI Spine cervical wo contrast 31264 Date: 15-May-2019 MR Shoulder wo contrast 38319 Date: 15-May-2019 History of Anastomosis Of Gallbladder [...] (finding) Vital Signs Date Test Result Details [id number] Systolic blood pressure 123 mm[Hg] Status: Comments : Location: LUE; Position: Sitting Diastolic blood pressure 79 mm[Hg] Status: Comment s: Location: LUE; Position: Sitting Body height 62 in Status: Weight 134 lb Status: Body mass index (BMI) [Ratio] 24.51 kg/m2 Status: Body surface area Derived from formula 1.61 m2 S tatus: Heart Rate 60 /min Status: Results Date Description Value Details [id number] [U] XRAY SHOULDER MIN 2 VWS RIGHT 30361 XR SHOULDER MIN 2 VWS RIGHT Images acqui red, not reported on this accession number. Plan of Care Name Dates Details Planned Observations Planned Goals not documented Planned Encounters Appointment; CAROLINE CUEVAS M.D. On: 23-Aug-2019 10:30 Interventions Provided Medication Changes* Meloxicam 7.5 MG Oral Tablet - Start * methylPREDNISolone 4 MG Oral Tablet - Start Labs/Procedures/Imaging* [U] XRAY SHOULDER MIN 2 VWS RIGHT 01018; Done: 29 Jun 2019 Instructions Name Dates [...]
--- OUTSIDE RECORDS SUMMARY | 2019-07-11 14:38 | XMS REPORT | Summary of Care ---
Author Author RICHIE Vinson M.A. Unknown Address Unknown Phone Unavailable Care Team Providers Care Court Interpreter Name Role Phone MASON Wilkinson, CAROLINE Unavailable Unavailable EUFEMIA Wilkinson, MARU Unavailable Unavailab tammy BEARDEN MD, JACQUE MYRICK Unavailable Unavaila rosa CUEVAS MD, CAROLINE Unavailable Unavailable Mason HAIR, Keyanna Unavailable Unavailable NICKI Wilkinson, JACQUE [...] Dates Details MRI Spine cervical wo contrast 75266 Date: 15-May-2019 MR Shoulder wo contrast 48979 Date: 15-May-2019 History of Anastomosis Of Gallbladder [...] (finding) Vital Signs Date Test Result Details [id number] Systolic blood pressure 123 mm[Hg] Status: Comments [...]
--- OUTSIDE RECORDS SUMMARY | 2019-07-11 14:38 | XMS REPORT | Summary of Care ---
Author RICHIE Callahan M.A. Unknown Address [facility] Phone Unavailable Care Team Providers Care Pigment Making Supervisor Name Role Phone ALEJANDRA Wilkinson, NIKKI Unavailable [...] right shoulder (7 26.0, M75.01) Status: Active Shoulder impingement, right (726.2, M75. 41) Status: Active Traumatic incomplete tear of right rotat or cuff, initial encounter (840.4, S46.011A) Status: Active Medications Name Dates Details Gabapentin [...] FALL M.D. * Start : 09-May-2018 Active Meloxicam 7.5 [...] Dates Details MRI Spine cervical wo contrast 52389 Date: 15-May-2019 MR Shoulder wo contrast 77383 Date: 15-May-2019 History of Anastomosis Of Gallbladder [...] (finding) Vital Signs Date Test Result Details [id number] Systolic blood pressure 123 mm[Hg] Status: Comments : Location: LUE; Position: Sitting Diastolic blood pressure 79 mm[Hg] Status: Comment s: Location: LUE; Position: Sitting Body height 62 in Status: Weight 134 lb Status: Body mass index (BMI) [Ratio] 24.51 kg/m2 Status: Body surface area Derived from formula 1.61 m2 S tatus: Heart Rate 60 /min Status: Results Date Description Value Details [id number] [U] XRAY SHOULDER MIN 2 VWS RIGHT 91761 XR SHOULDER MIN 2 VWS RIGHT Images acqui red, not reported on this accession number. Plan of Care Name Dates Details Planned Observations Planned Goals not documented Planned Encounters Appointment; CAROLINE CUEVAS M.D. On: 23-Aug-2019 10:30 Interventions Provided Medication Changes* Meloxicam 7.5 MG Oral Tablet - Start * methylPREDNISolone 4 MG Oral Tablet - Start Labs/Procedures/Imaging* [U] XRAY SHOULDER MIN 2 VWS RIGHT 26127; Done: 29 Jun 2019 Instructions Name Dates [...]
--- OUTSIDE RECORDS SUMMARY | 2019-07-11 14:38 | XMS REPORT | Summary of Care ---
Author RICHIE Luque [facility] Unknown Address Unknown Phone Unavailable Care Team Providers Care Apiculturist Name Role Phone MASON Wilkinson, CAROLINE Unavailable [...] Dates Details MRI Spine cervical wo contrast 97389 Date: 15-May-2019 MR Shoulder wo contrast 73493 Date: 15-May-2019 History of Anastomosis Of Gallbladder [...] (finding) Vital Signs Date Test Result Details [id number] Systolic blood pressure 123 mm[Hg] Status: Comments [...]
--- OUTSIDE RECORDS SUMMARY | 2019-07-11 14:38 | XMS REPORT | Summary of Care ---
Author Author RICHIE Vinson M.A. Unknown Address Unknown Phone Unavailable Care Team Providers Care Semiconductor Wafers Saw Operator Name Role Phone MASON Wilkinson, CAROLINE Unavailable [...] Dates Details MRI Spine cervical wo contrast 33683 Date: 15-May-2019 MR Shoulder wo contrast 10240 Date: 15-May-2019 History of Anastomosis Of Gallbladder [...] (finding) Vital Signs Date Test Result Details [id number]-[id number] Systolic blood pressure 123 mm[Hg] Status: Comments [...] "pains" and left arm numbness, follows a brick tester, and has a stress test in 1 [...]
--- OUTSIDE RECORDS SUMMARY | 2019-07-11 14:44 | XMS REPORT | Continuity of Care Document ---
Author Author RICHIE Covarrubias [facility] Address Unknown Phone Unavailable Care Team Providers Care Outfitter [place] Name Role Phone [facility] [place] [employer] Unavailable Un available Problems Problem Status Onset Date Classification Date Reported Comments Source 386.10 VERTIGO Active 07/16/2014 [facility] Medications No Data Provided for This [...] Coding: Brain wo contrast CT CPT Code: 73506 SL: 12 Artur Tiwari M.D. 07/18/2014 [facility] Internal Auditory Canal wo contrast CT [...] of the temporal bones. SL: 16 07/18/2014 [facility] Consultation Notes No Data Provided for This Section Discharge Summaries No Data Provided for This Section History and Physicals No Data Provided for This Section Vital Signs No Data Provided for This Section Encounters Location Location Details Encounter Type Encounter Number Reason For Visit Attending Provider ADM Date DC Date Status Source [facility] [id number] Chalino Bear 07/18/2014 07/19/2014 [facility] Procedures No Data Provided for This Section Assessment and Plan No Data Provided for This Section Plan of Care No Data Provided for This Section Social History Social History Date Source No data available for this section 07/19/2014 [facility] Family History No Data Provided for This Section Advance Directives No Data Provided for This Section Functional Status No Data Provided for This Section
[2019-07-11 15:30] VITALS: BP 130/78
[2019-07-11 17:27] VITALS: BP 109/77
--- NOTE | 2019-07-11 17:27 | NUR ---
1227 pm RECEIVING NOTE WAREHOUSE CONSULTANT RECOVERY DEPT............................................................... Bedside report received from Marc PELAYO. Identifierx2. Alert oriented and appropriate, PERRLA, respirations even and unlabored to room air. Pulses x4 extremities equal and strong. Pedal pulses PT/DP X4 and marked. Cap fill brisk < 3 sec. Rt wrist tr band site withou gross issues pain,pallor pressure or dysthymia. Skin warm and dry integrity appears D/I. IV 20g to rt ac at 100cchr. Presents healthy w/o s/s of infiltration or complaint. Abdomen soft and supple. pt offered toileting, denies need to urinate or defecate. No personal affects with patient. Family at bedside. Pt and family verbalizes understanding of POC. Currently w/o complaint of pain or need.ds/rn
[2019-07-11 17:45] VITALS: BP 115/80
[2019-07-11 18:00] VITALS: BP 124/77
--- NOTE | 2019-07-11 18:00 | Operative Report ---
DATE OF PROCEDURE: 07/11/2019 SURGEON: Chicho Verdin MD INDICATION: Coronary artery disease, angina with abnormal stress test. PROCEDURES PERFORMED: 1. Left heart catheterization, selective coronary angiography. 2. Deployment of right wrist TR band. 3. Conscious sedation administration 35 minutes. COMPLICATIONS: None. RECOMMENDATIONS: Medical therapy. DESCRIPTION OF PROCEDURE: Access obtained in the right radial artery. A 5-[place] sheath was placed. Coronary angiography demonstrated no angiographic coronary artery disease with minimal luminal irregularity in the coronary arteries. No intervention deemed necessary. LV end-diastolic pressure of 10. No gradient across the aortic valve on pullback. Right wrist guide and sheath were removed. TR band applied. The patient was discharged home same day. Chicho Verdin MD [facility] /[id number]
--- NOTE | 2019-07-11 18:00 | NUR ---
1800p RADIAL COMPRESSION REMOVAL NOTE: Initial Cuff volume 12 cc 1800p -2cc Removed No hematoma/bleeding noted with normal neurovascular function. 1815p -5cc Removed No hematoma/ bleeding noted with normal neurovascular function. 1830p -5cc Removed No hematoma/bleeding noted with normal neurovascular function. Air removal completed. Stasis achieved sterile 2x2,Tegaderm, Coban dressing No hematoma, bleeding noted with normal neurovascular function. Wrist splint in place. Pt instructed on POC. Ds/Rn
[2019-07-11 18:30] VITALS: BP 124/77
--- NOTE | 2019-07-11 18:30 | NUR ---
1830pm [employer] DISCHARGE NURSING NOTE Pt meets DC criteria. Rt tr band assessed for s/s of complication and presence of hematoma. Skin warm, dry, no discolor, and pulses present. IV removed from rt ac. Distal tip appears intact. VS WNL. Pt denies pain, sob, or need at this time. Family at BS. Review of discharge paperwork and follow up instructions. verbalized understanding. Pt to wheelchair and transported to front of hospital. Transferred to private vehicle under own strength w/o incident with DC paperwork in hand. - rosalina/anupam
== END | disposition home or self-care (01) ==
LOC: CATH LAB 14:35
PROVIDERS: ATTEND Internal Medicine Interventional Cardiology
DX: I25.119 Atherosclerotic heart disease of native coronary artery with unspecified angina pectoris (principal); R94.39 Abnormal result of other cardiovascular function study; Z01.812 Encounter for preprocedural laboratory examination; Z11.59 Encounter for screening for other viral diseases
CPT/HCPCS: 36415; 80053; 81025; 85025; 85610; 87635; 93458; C1769 ×2; C1887; J2001; J2250; J3010; J7030; Q9967; 99152